=== PATIENT | female | born 1980 | race Two or more races ===

== ENCOUNTER → 2024-09-12 | Outpatient (CLI) | payer MEDICAID, SELFPAY ==
--- NOTE | 2024-09-12 14:00 | XR_ITS ---
Examination: Breast ultrasound, unilateral, left complete Date and time of exam: September 12, 2024 1333 hrs. Indications: Outside mammogram June 13, 2024 14 mm asymmetry superior left breast Technique: Real-time rushing scale ultrasonographic imaging performed left breast including all 4 quadrants as well as nipple retroareolar and axillary region. Findings: 2:00 cyst 4 x 4 millimeter 3:00 cyst 9 x 9 mm 11:00 oval mass versus glandular tissue 6 x 4 mm Impression: BI-RADS Category 3: Probably benign findings Recommend 1 additional 6 month left breast sonogram follow-up to document stability of 11:00 oval mass versus glandular tissue, 6 by 4 x 4 millimeter
--- NOTE | 2024-09-12 14:30 | XR_ITS ---
Examination: Diagnostic digital mammography, unilateral, left Computer aided detection 3-D breast Tomosynthesis, unilateral Date and time of exam: September 12, 2024 1352 hrs. Indications: Outside mammogram July 14, 2024 14 mm asymmetry superior left breast Technique: Nonmagnified MLO, CC views of the left breast have been obtained, reconstructed from 3-D Tomosynthesis images. R2 computer aided detection program utilized for evaluation of suspicious masses and/or abnormal calcifications. 3-D Tomosynthesis images obtained. Findings: The breast is heterogeneously dense, which may obscure small masses 24 mm focal asymmetry is confirmed upper outer left breast on the spot compression views Impression: BI-RADS category 3: Probably benign findings One additional 6 month left mammogram follow-up is needed to document stability of focal asymmetry described above
== END | disposition home or self-care (01) ==
PROVIDERS: PCP Family Medicine; Referring Provider Physician Assistant; Visit Provider Physician Assistant
DX: R92.332 Mammographic heterogeneous density, left breast (principal); N64.89 Other specified disorders of breast; N63.22 Unspecified lump in the left breast, upper inner quadrant
CPT/HCPCS: 76641; 77061; 77065; G0279